=== PATIENT | male | born 1965 | race African-American/Black ===

== ENCOUNTER 2021-04-19 19:41 | Emergency (ER) | payer BC, SELFPAY ==
[2021-04-19 20:04] VITALS: BP 188/110; PULSE 57; RESP 18; TEMP 36.9; O2SAT 97; BMI 38.7
[2021-04-19 22:00] VITALS: BP 132/68; PULSE 60; RESP 18; TEMP 36.4; O2SAT 99
== END 2021-04-19 23:22 | disposition left against medical advice (07) ==
PROVIDERS: Emergency Provider Emergency Medicine; PCP Family Medicine
DX: M54.5 Low back pain (principal)
CPT/HCPCS: 99283; 99284

== ENCOUNTER 2021-04-19 23:56 | Emergency (ER) | payer BC, SELFPAY ==
[2021-04-20 00:26] VITALS: BP 178/105; PULSE 58; RESP 20; TEMP 36.4; O2SAT 96; BMI 41.5
[2021-04-20 01:09] VITALS: BP 152/94; PULSE 59; RESP 18; O2SAT 98
[2021-04-20 03:05] VITALS: BP 151/98; PULSE 57; RESP 18; TEMP 36.5; O2SAT 99
--- NOTE | 2021-04-20 05:35 | PC.NURSE ---
Pt agitated and searing at this rn stating i am no longer patient this is fucking ridiculous and i am leaving pt stormed through the [facility] patient care area yelling and swearing to staff and slammed through punching the exit door. security made aware of patient behavior.
== END 2021-04-20 05:24 | disposition left against medical advice (07) ==
PROVIDERS: Emergency Provider Emergency Medicine
DX: R03.0 Elevated blood-pressure reading, without diagnosis of hypertension (principal)
CPT/HCPCS: 99283; 99284